=== PATIENT | male | born 1975 | race Caucasian/White ===

== ENCOUNTER 2018-10-21 18:36 | Emergency (ER) | payer SELFPAY ==
[~2018-10-21] VITALS: Ht 175.3 cm; Wt 82.2 kg
[2018-10-21 18:55] VITALS: Ht 175.3 cm; Wt 82.2 kg
[2018-10-21] MEDS ORDERED: SOD CHLORIDE 0.9% 1,000 ML IV ONE (22:30)
[2018-10-21] MEDS ORDERED: ACETAMINOPHEN 325 MG TAB PO ONE (22:30)
--- NOTE | 2018-10-21 22:47 | ERD ---
ER Documentation Chief Complaint Chief Complaint BILATERAL LEG EDEMA X 2 DAYS. HPI This is a 43-year-old male with a past medical history of HIV, noncompliant on his HIV medication who is presenting with 2 to 3 days of bilateral lower extremity redness, warmth, swelling and pain. The patient has multiple bilateral lower extremity scars from skin popping, but he is not done this in quite a long time. He does not endorse any abscess sites. He does not endorse any alleviating or exacerbating factors that could have prompted his symptoms today. He has never had this occur before. The patient also reports feeling a fever beginning today. The patient has had no headache or vision changes. The patient does not endorse neck or back pain. The patient denies lightheadedness or dizziness. The patient has had no chest pain or trouble breathing. The patient denies nausea or vomiting. The patient denies abdominal pain. The patient denies changes to bowel movements or urination. The patient has had no focal deficits. The patient has had no weakness or numbness or tingling to the face or extremities. ROS All systems reviewed and are negative except as per history of present illness. Allergies Allergies: Coded Allergies: No Known Allergy (Unverified , 10/21/18) PMhx/Soc Hx Miscellaneous Medical Probl: Yes (HIV positive) Hx Alcohol Use: Yes Hx Substance Use: Yes (Past IV drug use) Hx Tobacco Use: Yes FmHx Family History: No diabetes Physical Exam Vitals Vital Signs Date Temp Pulse Resp B/P (MAP) Pulse Ox O2 O2 Flow FiO2 Time Delivery Rate 10/21/18 101.0 23:05 10/21/18 82 18 111/64 100 Room Air 22:15 (80) 10/21/18 101.0 95 20 112/58 100 18:55 (76) Physical Exam Const: No apparent distress, well-developed, well-nourished Head: Normocephalic, Atraumatic Eyes: Normal Conjunctiva. Extraocular movements intact. Pupils equal, round and reactive to light ENT: Normal External Ears, Nose and Mouth. Neck: Full range of motion. No meningismus. Resp: Clear to auscultation bilaterally, No wheezes, rales or rhonchi Cardio: Regular rate and rhythm. No murmurs, rubs or gallops Abd: Soft, non tender, non distended. Normal bowel sounds Skin: No petechiae or rashes. Back: No midline tenderness. No CVA tenderness Ext: No cyanosis. Bilateral lower extremity edema with erythema and warmth from the mid dior down. No induration or purulence or fluctuance. Neur: Awake and alert, oriented 4. Cranial nerves intact. No facial droop. Normal strength, sensation and coordination. Psych: Normal Mood and Affect Result Diagram: 10/21/18224610/21/182246 Results 24 hrs Laboratory Tests Test 10/21/18 22:47 10/21/18 23:02 White Blood Count 3.3 10^3/ul Red Blood Count 3.84 10^6/ul Hemoglobin 11.2 g/dl Hematocrit 33.7 % Mean Corpuscular Volume 87.8 fl Mean Corpuscular Hemoglobin 29.2 pg Mean Corpuscular Hemoglobin Concent 33.2 g/dl Red Cell Distribution Width 11.7 % Platelet Count 157 10^3/UL Mean Platelet Volume 10.5 fl Immature Granulocytes % 0.300 % Neutrophils % 63.8 % Lymphocytes % 20.3 % Monocytes % 9.8 % Eosinophils % 5.5 % Basophils % 0.3 % Nucleated Red Blood Cells % 0.0 /100WBC Immature Granulocytes # 0.010 10^3/ul Neutrophils # 2.1 10^3/ul Lymphocytes # 0.7 10^3/ul Monocytes # 0.3 10^3/ul Eosinophils # 0.2 10^3/ul Basophils # 0.0 10^3/ul Nucleated Red Blood Cells # 0.0 10^3/ul Prothrombin Time 14.0 Sec Prothrombin Time Ratio 1.1 INR International Normalized Ratio 1.07 Activated Partial Thromboplast Time 35.9 Sec Urine Color YELLOW Urine Clarity CLEAR Urine pH 6.0 Urine Specific [place] 1.011 Urine Ketones NEGATIVE mg/dL Urine Nitrite NEGATIVE mg/dL Urine Bilirubin NEGATIVE mg/dL Urine Urobilinogen NEGATIVE mg/dL Urine Leukocyte Esterase NEGATIVE Jae/ul Urine Hemoglobin NEGATIVE mg/dL Urine Glucose NEGATIVE mg/dL Urine Total Protein NEGATIVE mg/dl Sodium Level 137 mmol/L Potassium Level 3.5 mmol/L Chloride Level 99 mmol/L Carbon Dioxide Level 31 mmol/L Anion Gap 7 Blood Urea Nitrogen 14 mg/dl Creatinine 0.72 mg/dl Est Glomerular Filtrat Rate mL/min > 60 mL/min Glucose Level 123 mg/dl Calcium Level 8.7 mg/dl Total Bilirubin 0.3 mg/dl Direct Bilirubin 0.00 mg/dl Indirect Bilirubin 0.3 mg/dl Aspartate Amino Transf (AST/SGOT) 21 IU/L Alanine Aminotransferase (ALT/SGPT) 15 IU/L Alkaline Phosphatase 49 IU/L Troponin I < 0.012 ng/ml B-Type Natriuretic Peptide 31 PG/ML Total Protein 7.5 g/dl Albumin 3.5 g/dl Globulin 4.00 g/dl Albumin/Globulin Ratio 0.87 Urine Opiates Screen Negative Urine Barbiturates Negative Urine Amphetamines Screen POSITIVE Urine Benzodiazepines Screen Negative Urine Cocaine Screen Negative Urine Cannabinoids Negative POC Venous Lactate 1.6 mmol/L Current Medications Medications Dose Sig/Sonu Start Time Status Last (Trade) Ordered Route PRN Stop Time Admin Dose Reason Admin Sodium 1,000 ml @ Q1H ONCE 10/21/18 DC 10/21/18 Chloride 1,000 mls/hr IV 22:30 23:04 10/21/18 23:29 650 mg ONCE ONCE 10/21/18 DC 10/21/18 Acetaminophen PO 22:30 23:05 (Tylenol 10/21/18 22:31 Tab) Procedures/MDM MDM The patient's presentation warrants further investigation. Previous medical re cords, if available, were reviewed. LABS The patient's laboratory testing was obtained and reviewed. No emergent treatment was required unless described below. CBC: Mild leukopenia, likely related to his HIV. No shift. Mild normocytic anemia, not emergent. No E/o thrombocytopenia Chemistry: No E/o severe acidosis or alkalosis or renal failure or liver disease or diabetic ketoacidosis PT/INR: No E/o significant coagulopathy Lactate: No E/o severe sepsis Troponin: No E/o acute ischemia BNP: No E/o heart failure Urine: No E/o acute infection or hematuria Tox: UDS is positive for methamphetamine. EKG EKG read by me: Rate/Rhythm: Regular rate and rhythm at a rate of 80 bpm Intervals: Normal [place]: Normal Impression: No evidence of acute ischemia or arrhythmia IMAGING Imaging and Radiology interpretation reviewed. CXR 1V Interpreted by me Soft Tissue: No acute abnormalities Bones: No acute abnormalities Mediastinum/Cardiac Silhouette: Unremarkable. No widened mediastinum. Lungs: No acute abnormalities. Normal pulmonary vasculature. No pneumothorax. No pulmonary edema. Clear costal diaphragmatic angles. No pleural effusions. No opacity or consolidations concerning for pneumonia. TREATMENT/DISPOSITION The patient presents with a fever and symptoms consistent with bilateral lower extremity cellulitis. The patient's vital signs were otherwise unremarkable. A sepsis work-up was completed. The patient has no lactic acidosis. There is no evidence of endorgan damage. I do not believe that the patient is septic at this time and I do not believe the patient requires a full sepsis bolus. The patient does not have evidence of acute liver failure or acute renal failure. I do not see evidence of CHF. I have low suspicion for bilateral DVT. The patient's symptoms are consistent with cellulitis and I do feel that the patient requires treatment, but I feel that this may be completed in an outpatient setting. The patient does have a history of HIV, but he reports noncompliance with his medications over the last several weeks. The patient requires follow-up with his primary care physician and needs to reinitiate his HIV medications. The patient does have them at home, he just does not want to take them. The patient does have a mild leukopenia, which I suspect is related to his chronic disease process. I do not see evidence of an opportunistic infection at this time. I have decreased suspicion for evolution to AIDS. I do not feel this requires inpatient management. The patient understands the dangers of noncompliance on his HIV medicines. I also discussed the dangers of methamphetamine abuse. DISCHARGE Upon reevaluation of the patient, symptoms have improved. No emergent diagnoses were identified. At this time, I feel that the patient stable for discharge. The patient was instructed to follow-up with a primary care physician in 1-3 days. The patient will be given strict precautions with which to return to the emergency department. Prescriptions: Keflex, Bactrim The patient's blood pressure was elevated at greater than 120/80 while in the emergency department. The patient was otherwise stable with no evidence of hypertensive urgency or emergency. The patient does not require admission for blood pressure control. I have discussed with the patient the risks of hypertension. I have instructed the patient to return to the ER for any new or worsening symptoms including chest pain, shortness of breath, headache, blurred vision, confusion, nausea, vomiting or LOC. I have advised the patient to follow up with the primary care physician for outpatient monitoring and treatment for hypertension in 1-3 days. Disclaimer: Inadvertent spelling and grammatical errors are likely due to EHR/dictation software use and do not reflect on the overall quality of patient care. Note that the electronic time recorded on this note does not necessarily reflect the actual time of the patient encounter. Departure Diagnosis: Primary Impression: Bilateral lower leg cellulitis Additional Impressions: Bilateral lower extremity edema Fever Fever type: unspecified Qualified Codes: R50.9 - Fever, unspecified Leukopenia Leukopenia type: unspecified Qualified Codes: D72.819 - Decreased white blood cell count, unspecified Normocytic anemia Methamphetamine abuse Condition: Stable Patient Instructions: Cellulitis, Fever Control (Adult), Understanding Methamphetamine Abuse and Addiction Additional Instructions: Thank you for for coming to [facility] for your care today. Please ask your nurse or provider if you have questions about your care today and do not leave until all your questions have been answered. Please use any medications given as directed and follow-up with your doctor (or the doctor you were referred to) in the next 1-3 days. If you do not have a primary care doctor you may follow up at the [facility] or [facility] (listed below). You may also use motrin and tylenol as needed for fever and/or pain unless instructed otherwise by your provider or nurse. Indications for more urgent follow-up have been discussed, but you may return to the Emergency Department at ANY time for any worrisome or worsening symptoms. If you have abdominal pain, please know that no test or exam you received is perfect and you should follow up within 8 hours for continued pain. If you had any imaging studies today, such as an X-Ray or CT Scan, these studies will be reviewed later by a radiologist. You will be called if there are important findings that were not identified today, so make sure the contact information you provided at registration is correct. If you received any narcotic pain control medicine today, such as Vicodin, Morphine or Dilaudid, your coordination and judgment may be affected for a number of hours. Please do not drive or operate heavy machinery, and you may want someone to assist you at home. If you were given a prescription for narcotic medication, be aware that it is very addictive- use sparingly and only if necessary. PLEASE SEEK FURTHER EVALUATION AND MANAGEMENT AT YOUR DOCTORS OFFICE WITHIN THE NEXT 1-3 DAYS. IT IS YOUR RESPONSIBILITY TO MAKE AN APPOINTMENT FOR FOLOW-UP CARE. IF YOU HAVE A PRIMARY DOCTOR, PLEASE CALL THEIR OFFICE TO SCHEDULE AN APPOINTMENT FOR FOLLOW UP. IF YOU DO NOT HAVE A PRIMARY DOCTOR YOU CAN CALL OUR PHYSICIAN REFERRAL HOTLINE AT IF YOU CAN NOT AFFORD TO SEE A PHYSICIAN YOU CAN CHOSE FROM THE FOLLOWING [facility] CLINICS: [facility] [id number] [facility] [address] [facility] [address] [facility] [address] [facility]. [facility] [address] [facility]. [facility]. [address] LYNNE HARRIS MD Oct 21, 2018 22:46
[2018-10-22] MEDS ORDERED: CEPH-443 PO (00:50)
[2018-10-22] MEDS ORDERED: SULF1TAB31 PO (00:50)
[2018-10-22 02:10] VITALS: BP 102/68; PULSE 74; RESP 18
== END 2018-10-22 02:45 | disposition home or self-care (01) ==
LOC: E/R 18:36
DX: L03.115 Cellulitis of right lower limb (principal); L03.116 Cellulitis of left lower limb; R50.9 Fever, unspecified; D72.819 Decreased white blood cell count, unspecified; F15.10 Other stimulant abuse, uncomplicated; D64.9 Anemia, unspecified; Z21 Asymptomatic human immunodeficiency virus [HIV] infection status
CPT/HCPCS: 36415; 71045; 80053; 80307; 81003; 83605; 83880; 84484; 85025; 85610; 85730; 87040; 87086; 93005; 99285; J7030